=== PATIENT | female | born 1960 | race Caucasian/White ===

== ENCOUNTER 2019-12-24 15:19 | Outpatient (CLI) | payer OTHER, SELFPAY ==
--- NOTE | ~2019-12-24 | MM_ITS ---
EXAMINATION: MM screening [facility] BI w manjeet HISTORY: Screening TECHNIQUE: Craniocaudal and mediolateral oblique 3-D tomosynthesis images were obtained and synthetic 2-D images were generated. CAD analysis was submitted and interpreted. COMPARISON: 10/27/2017 BREAST PARENCHYMAL COMPOSITION: There are scattered areas of fibroglandular density. FINDINGS: There is no evidence of suspicious mass, calcification, or architectural distortion to sugg est malignancy in either breast. There has been no suspicious interval change. IMPRESSION: 1. No mammographic evidence of malignancy. 2. Recommend routine screening mammography in one year. BI-RADS Category 1: Negative Reviewed, dictated and finalized at location A.
== END 2019-12-24 15:20 | disposition home or self-care (01) ==
LOC: ANHIMG 15:24
PROVIDERS: PCP Family Medicine; Visit Provider Family Medicine
DX: Z12.31 Encounter for screening mammogram for malignant neoplasm of breast (principal)
CPT/HCPCS: 77063; 77067

== ENCOUNTER → 2020-01-14 09:43 | Outpatient (CLI) | payer OTHER, SELFPAY ==
--- NOTE | ~2020-01-14 | DEXA_ITS ---
Bone Density Report Name: Coco Hancock Age: 59 Sex: Female Ethnicity: White Date of : 1960 Indication: postmenopausal; screening for osteoporosis; height loss; Referring Provider: Phillip Mccarty Study: Bone densitometry was performed. Exam Date: January 14, 2020 Accession number: [id number] Bone Density: Region BMD T-score Z-score Classification AP Spine (L1-L4) 0.888 -1.4 0.0 Osteopenia Femoral Neck (Left) 0.757 -0.8 0.4 Normal Total Hip (Left) 0.959 0.1 1.1 Normal Femoral Neck (Right) 0.729 -1.1 0.2 Osteopenia Total Hip (Right) 0.889 -0.4 0.5 Normal Total Hip Mean 0.924 -0.2 0.8 Normal World Health Organization criteria for BMD impression classify patients as: Normal (T-score at or above -1.0), Osteopenia (T-score between -1.0 and -2.5), or Osteoporosis (T-score at or below -2.5). 10-year Fracture Risk(1): Major Osteoporotic Fracture 6.1% Hip Fracture 0.3% Reported Risk Factors: [place] (), Neck BMD=0.729, BMI=44.5 (1) FRAX(R) Version 3.08. Fracture probability calculated for an untreated patient. Fracture probability may be lower if the patient has received treatment. Clinical Information Provided by Patient: Patient maximum height was 66 Menopause Age: 32 No regular weight bearing exercise Onset of menses at age 16 Number of children 0 Missed period for more than 6 months in a row Impression: The patient has low bone mass, based on the Total Spine T-score. The patient has an estimated ten-year risk of hip fracture of 0.3% and an estimated ten-year risk of major fracture of 6.1%, based on the WHO FRAX algorithm. Discussion: BONE DENSITY IS LOW AT ONE OR MORE SKELETAL SITES. This patient's lowest T-score is low at one or more skeletal sites. It meets the World Health Organization's (WHO) criteria for ?low bone mass? (T-score between -1.0 and -2.5). The patient's 10-year risk of fracture as calculated by FRAX is less than the threshold where pharmacological therapy is recommended by the National Osteoporosis Foundation (NOF). However, all treatment decisions require clinical judgment and consideration of individual patient factors, including patient preferences, comorbidities, previous drug use, risk factors not captured in the FRAX model (e.g., frailty, falls, vitamin D deficiency, increased bone turnover, interval significant decline in bone density) and possible under or overestimation of fracture risk by FRAX. The patient should follow a healthful lifestyle (good nutrition with adequate calcium and vitamin D, and appropriate weight-bearing exercise). Follow-Up: Consider repeating this study in 2 to 3 years to reassess this patient's status, or sooner if there is some new clinical indication. Reported by: [facility] on 01/14/2020 10:14:00 AM.
== END ==
PROVIDERS: PCP Family Medicine; Visit Provider Family Medicine
DX: Z78.0 Asymptomatic menopausal state (principal); M85.88 Other specified disorders of bone density and structure, other site; M85.851 Other specified disorders of bone density and structure, right thigh
CPT/HCPCS: 77080

== ENCOUNTER 2020-12-29 09:58 | Outpatient (CLI) | payer OTHER, SELFPAY ==
--- NOTE | ~2020-12-29 | MM_ITS ---
EXAMINATION: MM screening [facility] BI w manjeet HISTORY: Screening TECHNIQUE: Craniocaudal and mediolateral oblique 3-D tomosynthesis images were obtained and synthetic 2-D images were generated. CAD analysis was submitted and interpreted. COMPARISON: Comparison to multiple prior studies sequentially, with oldest reviewed study dated 10/27. BREAST PARENCHYMAL COMPOSITION: There are scattered areas of fibroglandular density. FINDINGS: There is a small developing radiolucent mass in the upper outer quadrant of the right breas t. The left breast cysts stable without evidence for malignancy. IMPRESSION: 1. Developing right breast mass. 2. Additional mammographic views and possible breast ultrasound are recommended. BI-RADS Category 0: Incomplete: Needs additional imaging evaluation. Reviewed, dictated and finalized at location A. IMPRESSION: 1. Developing right breast mass. 2. Additional mammographic views and possible breast ultrasound are recommended . BI-RADS Category 0: Incomplete: Needs additional imaging evaluation.
== END 2020-12-29 09:59 | disposition home or self-care (01) ==
LOC: ANHIMG 10:00
PROVIDERS: PCP Family Medicine; Visit Provider Family Medicine
DX: Z12.31 Encounter for screening mammogram for malignant neoplasm of breast (principal); R92.8 Other abnormal and inconclusive findings on diagnostic imaging of breast
CPT/HCPCS: 77063; 77067

== ENCOUNTER 2021-01-18 13:54 | Outpatient (CLI) | payer OTHER, SELFPAY ==
--- NOTE | ~2021-01-18 | MMUS_ITS ---
EXAMINATION: MM diagnostic durga RT w manjeet, US breast RT limited HISTORY: Right breast mass on screening mammogram TECHNIQUE: Additional 3-D tomosynthesis images of the right breast were performed and synthetic 2-D i mages were generated. CAD analysis was submitted and interpreted. High resolution limited right breas t ultrasound was performed. COMPARISON: 12/29/2020, 12/24/2019, 10/27/2017 BREAST PARENCHYMAL COMPOSITION: There are scattered areas of fibroglandular density. FINDINGS: MAMMOGRAPHIC FINDINGS: There is a return to baseline fibroglandular appearance with spot compression of the right breast in the area questioned on screening mammogram. ULTRASOUND: There is no evidence of focal abnormal solid or cystic mass in the vicinity of the mammographic findi ng in question. IMPRESSION: 1. No mammographic or sonographic evidence of malignancy. 2. Recommend routine screening mammography in one year. BI-RADS Category 1: Negative Reviewed, dictated and finalized at location A. IMPRESSION: 1. No mammographic or sonographic evidence of malignancy. 2. Recommend routine screening mammography in one year. BI-RADS Category 1: Negative
== END 2021-01-18 13:55 | disposition home or self-care (01) ==
LOC: ANHIMG 13:56
PROVIDERS: PCP Family Medicine; Visit Provider Family Medicine
DX: R92.8 Other abnormal and inconclusive findings on diagnostic imaging of breast (principal)
CPT/HCPCS: 76642; 77061; 77065; G0279

== ENCOUNTER 2021-03-19 07:53 | Outpatient (CLI) | payer OTHER, SELFPAY ==
--- NOTE | 2021-03-19 08:00 | ECG_ITS ---
Measurements Intervals [place] Rate: 67 P: 17 ME: 135 QRS: -25 QRSD: 112 T: -4 QT: 377 QTc: 400 Interpretive Statements SINUS RHYTHM INCOMPLETE RIGHT BUNDLE BRANCH BLOCK DELAYED PRECORDIAL R/S TRANSITION LOW QRS VOLTAGE IN PRECORDIAL LEADS BORDERLINE T WAVE ABNORMALITY- ANTERIOR LEADS BASELINE ARTIFACT- II, III, V3-V6 BORDERLINE ECG Electronically Signed On 03-19-2021 8:14:09 PRACTICE LEAD by Donovan Bello D.O.
== END 2021-03-19 07:54 | disposition home or self-care (01) ==
LOC: ANHCARD 07:55
PROVIDERS: PCP Family Medicine; Visit Provider Family Medicine
DX: Z01.818 Encounter for other preprocedural examination (principal); I45.10 Unspecified right bundle-branch block; R94.31 Abnormal electrocardiogram [ECG] [EKG]
CPT/HCPCS: 93005

== ENCOUNTER 2021-09-25 08:11 | Emergency (ER) | payer OTHER, SELFPAY ==
--- NOTE | ~2021-09-25 | XR_ITS ---
XR knee LT 3V 09/25/2021 08:42 Indication: Left knee pain after trauma Procedure: 4 views left knee Comparison: No prior studies for comparison. Findings: There is a depressed lateral tibial plateau fracture, age indeterminate. There is osteoarth ritis of the left knee. No significant joint effusion. Impression: 1: Age-indeterminate lateral tibial plateau fracture. 2: Mild tricompartment osteoarthritis. Reviewed, dictated and finalized at location A. Impression: 1: Age-indeterminate lateral tibial plateau fracture. 2: Mild tricompartment osteoarthritis.
[2021-09-25 08:13] VITALS: PULSE 65; RESP 18; TEMP 36.4; O2SAT 100
[2021-09-25] MEDS: ACETAMINOPHEN 500 MG TABLET 1000 MG PO (08:27)
--- NOTE | 2021-09-25 09:50 | ED.LOWEXIN ---
HPI - Extremity Injury (Lower) General Chief Complaint: Extremity Injury, Lower Stated Complaint: fall 1 step from flip flop slipping L knee pain Time Seen by Provider: 09/25/21 08:12 History of Present Illness HPI Narrative: 61-year-old female presents after she slipped and fell, she felt a popping in her left knee and pain. She has put some ice on it, states that it was hurting so much she could not put weight on it, so she came to the hospital. No focal numbness or weakness or tingling. Related Data Home Medications Medication Instructions Recorded Confirmed omega-3 fatty acids 1,000 mg 1,000 mg PO DAILY 12/03/19 01/18/21 capsule (Fish Oil Concentrate) cholecalciferol (vitamin D3) 50 50 mcg PO DAILY 01/13/20 01/18/21 mcg (2,000 unit) capsule vit C 250 mg-vit E 90 mg-zinc 40 1 tablet PO BID 01/13/20 01/18/21 mg-copper 1 [id number] capsule (PreserVision AREDS-2) calcium carbonate 600 mg calcium 600 mg PO DAILY 01/16/20 01/18/21 (1,500 mg) tablet (Calcium) Allergies Allergy/AdvReac Type Severity Reaction Status Date / Time No Known Allergies Allergy Verified 09/25/21 08:20 Review of Systems Review of Systems: M/S: Left knee pain SKIN: No abrasions NEURO: [No headache or focal numbness or weakness] PMFSH Past Medical History Medical History Cataract Environmental allergies CONOR (obstructive sleep apnea) Osteopenia Ovarian failure 1982 Unspecified osteoarthritis, unspecified site Vision abnormalities Weight gain Surgical History Surgical History H/O laparoscopy 1982 Exploratory for premature ovarian failure History of cataract surgery (~2017) Family History Family History Mother Family history of osteoporosis Hypertension Family history of cardiovascular disease Family history of arthritis Family history of chronic obstructive pulmonary disease Cerebrovascular accident Father Hydrocephalus Other Diabetes mellitus Family history of rheumatoid arthritis Social History Social History Smoking status: Never smoker Second hand tobacco smoke exposure: No Alcohol intake: former Substance use: never Gender identity (if verbalized by the patient): Female Exam Narrative: EXAMINATION OF ORGAN SYSTEMS/BODY AREAS: Constitutional: Vital signs per nursing GENERAL:[No acute distress, non-toxic appearing.] HEAD: Normal with no signs of head trauma. EYES: EOMI, conjunctiva normal ENT: Hearing grossly intact LUNGS: Nonlabored breathing. HEART: [Regular rate and rhythm] EXT: Tenderness to lateral left knee, strong DP pulses bilaterally SKIN: [No rashes or lesions.] NEURO: [Alert and oriented x 3. No gross focal sensory or strength deficits.] PSYCH: Normal affect Course Vital Signs Vital signs: Vital Signs Temperature 97.5 F L 09/25/21 08:13 Pulse Rate 65 09/25/21 08:13 Respiratory Rate 18 09/25/21 08:13 Pulse Oximetry 100 09/25/21 08:13 Oxygen Delivery Room Air 09/25/21 08:13 Temperature 97.5 F L 09/25/21 08:13 Pulse Rate 60 09/25/21 10:14 Respiratory Rate 18 09/25/21 10:14 Blood Pressure 127/84 09/25/21 10:14 Pulse Oximetry 100 09/25/21 10:14 Oxygen Delivery Room Air 09/25/21 08:13 MDM - Extremity Injury (Lower) MDM Narrative Medical decision making narrative: 61-year-old female presenting with left knee injury, vital stable, exam shows some tenderness palpation of the left lateral knee but neurovascularly intact, x-ray notable for arthritis and lateral tibial plateau fracture, as patient is neurovascularly intact without any signs of compartment syndrome, I do feel she is stable for outpatient follow-up with orthopedics at this time, she is given follow-up information and return precautions, she promises to come darrian
[2021-09-25 10:14] VITALS: BP 127/84; PULSE 60; RESP 18; O2SAT 100
== END 2021-09-25 09:50 | disposition home or self-care (01) ==
PROVIDERS: Emergency Provider Emergency Medicine; PCP Family Medicine
DX: S82.002A Unspecified fracture of left patella, initial encounter for closed fracture (principal); W01.0XXA Fall on same level from slipping, tripping and stumbling without subsequent striking against object, initial encounter
CPT/HCPCS: 73562; 99283; A9270

== ENCOUNTER 2022-01-19 08:29 | Outpatient (CLI) | payer OTHER, SELFPAY ==
--- NOTE | ~2022-01-19 | MM_ITS ---
EXAMINATION: MM screening [facility] BI w manjeet HISTORY: Screening mammogram TECHNIQUE: Craniocaudal and mediolateral oblique 3-D tomosynthesis images were obtained and synthetic 2-D images were generated. CAD analysis was submitted and interpreted. COMPARISON: 01/18/2021, 12/29/2020, 12/24/2019 BREAST PARENCHYMAL COMPOSITION: There are scattered areas of fibroglandular density. FINDINGS: No suspicious mass, calcification, or architectural distortion are identified in either rebecca ast to suggest malignancy. There has been no suspicious interval change. IMPRESSION: 1. No mammographic evidence of malignancy. 2. Recommend routine screening mammography in one year. BI-RADS Category 1: Negative Reviewed, dictated and finalized at location A.
== END 2022-01-19 08:30 | disposition home or self-care (01) ==
PROVIDERS: PCP Family Medicine; Visit Provider Family Medicine
DX: Z12.31 Encounter for screening mammogram for malignant neoplasm of breast (principal)
CPT/HCPCS: 77063; 77067

== ENCOUNTER 2023-02-08 09:23 | Outpatient (CLI) | payer OTHER, SELFPAY ==
[2023-02-08 13:44] LABS: Basophils Absolute Auto 0.1 K/mm3 (0.0-0.1); Basophils Percent Auto 1.3 % (0.2-1.2); Eosinophils Absolute Auto 0.3 K/mm3 (0-0.3); Hematocrit 46.6 % (37.0-47.0); Hemoglobin 14.5 g/dL (12.0-15.0); Immature Granulocyte Absolute 0.04 K/mm3 (0.00-0.031); Immature Granulocyte Percent A 0.5 % (0-0.5); Lymphocytes Absolute Auto 2.37 K/mm3 (0.9-3.2); Lymphocytes Percent Auto 28.6 % (18.3-44.2); Mean Corpuscular HGB Conc 31.1 g/dl (32-36); Mean Corpuscular Hemoglobin 28.4 pg (26-34); Mean Corpuscular Volume 91.2 fl (80-100); Mean Platelet Volume 10.3 fl (7.4-10.4); Monocytes Absolute Auto 0.7 K/mm3 (0.1-0.6); Monocytes Percent Auto 8.2 % (2.6-8.5); Neutrophils Absolute Auto 4.8 K/mm3 (1.3-6.7); Neutrophils Percent Auto 57.4 % (45.5-73.1); Platelet Count Result 283 k/mm3 (150-375); Red Blood Count 5.11 M/mm3 (4.2-5.4); White Blood Count 8.3 K/mm3 (4.5-10.0)
[2023-02-08 14:00] LABS: Alanine Aminotransferase 35 U/L (6-35); Albumin Level 4.5 g/dL (3.5-5.1); Alkaline Phosphatase 77 U/L (38-126); Anion Gap 6 mmol/L (8-16); Aspartate Amino Transferase 82 U/L (14-36); Bilirubin,Total 1.2 mg/dL (0.2-1.3); Blood Urea Nitrogen 16 mg/dL (7-17); Calcium 9.7 mg/dL (8.4-10.2); Carbon Dioxide 30 mmol/L (22-30); Chloride 104 mmol/L (98-107); Cholesterol 199 mg/dL (0-200); Estimated Glomerular Filt Rate > 60; Glucose 97 mg/dL (65-110); HDL Direct 47 mg/dL; Potassium 3.9 mmol/L (3.4-5.0); Sodium 140 mmol/L (137-145); Triglycerides 118 mg/dL (<150)
[2023-02-08 14:11] LABS: LDL Cholesterol Direct 111 mg/dL
[2023-02-08 14:23] LABS: Vitamin D 25 Hydroxy 55.9 ng/mL
[2023-02-08 14:51] LABS: Hemoglobin A1C 5.6 % (<5.7)
== END 2023-02-08 09:24 | disposition home or self-care (01) ==
LOC: ANHGOSHLAB 09:24
PROVIDERS: PCP Family Medicine; Visit Provider Family Medicine
DX: Z00.00 Encounter for general adult medical examination without abnormal findings (principal); E78.5 Hyperlipidemia, unspecified; E53.8 Deficiency of other specified B group vitamins; E55.9 Vitamin D deficiency, unspecified; R73.03 Prediabetes; R79.89 Other specified abnormal findings of blood chemistry
CPT/HCPCS: 36415; 80053; 80061; 82306; 82607; 83036; 84443; 85025

== ENCOUNTER 2023-03-22 14:44 | Outpatient (CLI) | payer OTHER, SELFPAY ==
[2023-03-22 19:30] LABS: Alanine Aminotransferase 35 U/L (6-35); Albumin Level 4.4 g/dL (3.5-5.1); Alkaline Phosphatase 78 U/L (38-126); Anion Gap 7 mmol/L (8-16); Aspartate Amino Transferase 49 U/L (14-36); Bilirubin,Total 1.2 mg/dL (0.2-1.3); Blood Urea Nitrogen 17 mg/dL (7-17); Calcium 9.8 mg/dL (8.4-10.2); Carbon Dioxide 28 mmol/L (22-30); Chloride 104 mmol/L (98-107); Estimated Glomerular Filt Rate > 60; Glucose 87 mg/dL (65-110); Sodium 139 mmol/L (137-145)
== END 2023-03-22 14:45 | disposition home or self-care (01) ==
LOC: ANHGOSHLAB 14:45
PROVIDERS: PCP Family Medicine; Visit Provider Family Medicine
DX: R74.01 Elevation of levels of liver transaminase levels (principal)
CPT/HCPCS: 36415; 80053

== ENCOUNTER 2023-04-25 14:04 | Outpatient (CLI) | payer OTHER, SELFPAY ==
--- NOTE | ~2023-04-25 | MM_ITS ---
EXAMINATION: MM screening [facility] BI w manjeet HISTORY: Screening mammogram TECHNIQUE: Craniocaudal and mediolateral oblique 3-D tomosynthesis images were obtained and synthetic 2-D images were generated. CAD analysis was submitted and interpreted. COMPARISON: 01/19/2022, 01/18/2021, 12/29/2020, 12/24/2019, 10/27/2017 BREAST PARENCHYMAL COMPOSITION: There are scattered areas of fibroglandular density. FINDINGS: No suspicious mass, calcification, or architectural distortion are identified in either rebecca ast to suggest malignancy. There has been no suspicious interval change. IMPRESSION: 1. No mammographic evidence of malignancy. 2. Recommend routine screening mammography in one year. BI-RADS Category 1: Negative Reviewed, dictated and finalized at location A. [employer]ING [employer] OPERATOR
== END 2023-04-25 14:05 | disposition home or self-care (01) ==
PROVIDERS: PCP Family Medicine; Visit Provider Obstetrics & Gynecology
DX: Z12.31 Encounter for screening mammogram for malignant neoplasm of breast (principal)
CPT/HCPCS: 77063; 77067

== ENCOUNTER 2023-07-06 08:50 | Outpatient (CLI) | payer OTHER, SELFPAY ==
--- NOTE | ~2023-07-06 | DEXA_ITS ---
Bone Density Report Name: TOM MCALLISTER Age: 63 Sex: Female Ethnicity: White Date of : 1960 Indication: postmenopausal; screening for osteoporosis; height loss; Referring Provider: JOSH JONES Study: Bone densitometry was performed. Exam Date: July 06, 2023 Accession number: [id number] Bone Density: Region BMD T-score Z-score Classification AP Spine(L1-L4) 0.887 -1.5 0.2 Osteopenia Femoral Neck (Left) 0.694 -1.4 0.0 Osteopenia Total Hip (Left) 0.916 -0.2 0.9 Normal Femoral Neck (Right) 0.723 -1.1 0.3 Osteopenia Total Hip (Right) 0.925 -0.1 1.0 Normal Total Hip Mean 0.920 -0.2 1.0 Normal World Health Organization criteria for BMD impression classify patients as: Normal (T-score at or above -1.0), Osteopenia (T-score between -1.0 and -2.5), or Osteoporosis (T-score at or below -2.5). 10-year Fracture Risk(1): Major Osteoporotic Fracture 7.1% Hip Fracture 0.6% Reported Risk Factors: [place] (), Neck BMD=0.694, BMI=45.5 (1) FRAX(R) Version 3.08. Fracture probability calculated for an untreated patient. Fracture probability may be lower if the patient has received treatment. Previous Exams: Region Exam Age BMD T-score BMD Change BMD Change Date g/cm2 vs Baseline vs Previous AP Spine (L1-L4) 07/06/2023 63 0.887 -1.5 -0.072 (-7.5%) -0.072 (-7.5%) 07/06/2023 63 0.960 -0.8 *Denotes significance at 95% confidence level, LSC for AP Spine = 0.022 g/cm2 # Denotes dissimilar scan types or analysis methods Clinical Information Provided by Patient: Has used the following medications: Vitamin D, Calcium Patient maximum height was 66 Onset of menses at age 16 Number of children 0 Impression: The patient has low bone mass, based on the Total Spine T-score. The patient has an estimated ten-year risk of hip fracture of 0.6% and an estimated ten-year risk of major fracture of 7.1%, based on the WHO FRAX algorithm. No significant bone loss was observed. Discussion: BONE DENSITY IS LOW AT ONE OR MORE SKELETAL SITES. This patient's lowest T-score is low at one or more skeletal sites. It meets the World Health Organization's (WHO) criteria for ?low bone mass? (T-score between -1.0 and -2.5). The patient's 10-year risk of fracture as calculated by FRAX is less than the threshold where pharmacological therapy is recommended by the National Osteoporosis Foundation (NOF). However, all treatment decisions require clinical judgment and consideration of individual patient factors, including pat
== END 2023-07-06 08:51 | disposition home or self-care (01) ==
PROVIDERS: PCP Family Medicine; Visit Provider Family Medicine
DX: Z78.0 Asymptomatic menopausal state (principal); M85.88 Other specified disorders of bone density and structure, other site; M85.852 Other specified disorders of bone density and structure, left thigh; M85.851 Other specified disorders of bone density and structure, right thigh
CPT/HCPCS: 77080

== ENCOUNTER 2024-03-20 09:09 | Outpatient (CLI) | payer OTHER, SELFPAY ==
[2024-03-20 12:57] LABS: Alanine Aminotransferase 38 U/L (6-35); Albumin Level 4.6 g/dL (3.5-5.1); Alkaline Phosphatase 80 U/L (38-126); Anion Gap 7 mmol/L (4-12); Aspartate Amino Transferase 57 U/L (14-36); Bilirubin,Total 0.8 mg/dL (0.2-1.3); Blood Urea Nitrogen 19 mg/dL (7-17); Calcium 9.9 mg/dL (8.4-10.2); Carbon Dioxide 28 mmol/L (22-30); Chloride 105 mmol/L (98-107); Cholesterol 175 mg/dL (0-200); Estimated Glomerular Filt Rate > 60; Glucose 97 mg/dL (65-110); HDL Direct 46 mg/dL; Potassium 4.5 mmol/L (3.4-5.0); Sodium 140 mmol/L (137-145); Triglycerides 108 mg/dL (<150)
[2024-03-20 12:59] LABS: Basophils Absolute Auto 0.1 K/mm3 (0.0-0.1); Basophils Percent Auto 1.4 % (0.2-1.2); Eosinophils Absolute Auto 0.4 K/mm3 (0-0.3); Eosinophils Percent Auto 4.9 % (0-4.4); Hematocrit 45.3 % (37.0-47.0); Hemoglobin 14.6 g/dL (12.0-15.0); Immature Granulocyte Absolute 0.03 K/mm3 (0.00-0.031); Immature Granulocyte Percent A 0.4 % (0-0.5); Lymphocytes Absolute Auto 2.35 K/mm3 (0.9-3.2); Lymphocytes Percent Auto 28.3 % (18.3-44.2); Mean Corpuscular HGB Conc 32.2 g/dl (32-36); Mean Corpuscular Hemoglobin 29.1 pg (26-34); Mean Corpuscular Volume 90.2 fl (80-100); Mean Platelet Volume 10.5 fl (7.4-10.4); Monocytes Absolute Auto 0.8 K/mm3 (0.1-0.6); Monocytes Percent Auto 9.4 % (2.6-8.5); Neutrophils Absolute Auto 4.6 K/mm3 (1.3-6.7); Neutrophils Percent Auto 55.6 % (45.5-73.1); Platelet Count Result 271 k/mm3 (150-375); Red Blood Count 5.02 M/mm3 (4.2-5.4); Red Cell Distribution Width 13.1 % (11.5-14.5); White Blood Count 8.3 K/mm3 (4.5-10.0)
[2024-03-20 13:08] LABS: LDL Cholesterol Direct 95 mg/dL
[2024-03-20 13:20] LABS: Vitamin D 25 Hydroxy 56.4 ng/mL
[2024-03-20 13:41] LABS: Vitamin B12 > 1000.0 pg/mL (239-931)
[2024-03-20 14:40] LABS: Free T4 Free Thyroxine Reflex 1.24 ng/dL (0.78-2.19)
[2024-03-20 15:47] LABS: Total Triiodothyronine (T3) 1.48 NG/ML (0.97-1.69)
[2024-03-20 23:33] LABS: Hemoglobin A1C 5.8 % (<5.7)
== END 2024-03-20 09:10 | disposition home or self-care (01) ==
LOC: ANHGOSHLAB 09:10
PROVIDERS: PCP Family Medicine; Visit Provider Family Medicine
DX: E78.5 Hyperlipidemia, unspecified (principal); Z79.899 Other long term (current) drug therapy; R42 Dizziness and giddiness; E53.8 Deficiency of other specified B group vitamins; E55.9 Vitamin D deficiency, unspecified; Z00.00 Encounter for general adult medical examination without abnormal findings; R73.03 Prediabetes
CPT/HCPCS: 36415; 80053; 80061; 82306; 82607; 83036; 84439; 84443; 84480; 85025

== ENCOUNTER 2024-09-24 08:15 | Outpatient (CLI) | payer OTHER, SELFPAY ==
[2024-09-24 16:53] LABS: Hemoglobin A1C 5.6 % (<5.7)
[2024-09-24 17:04] LABS: Alanine Aminotransferase 31 U/L (6-35); Albumin Level 4.5 g/dL (3.5-5.1); Alkaline Phosphatase 80 U/L (38-126); Anion Gap 10 mmol/L (4-12); Aspartate Amino Transferase 47 U/L (14-36); Bilirubin,Total 0.9 mg/dL (0.2-1.3); Blood Urea Nitrogen 18 mg/dL (7-17); Carbon Dioxide 26 mmol/L (22-30); Chloride 104 mmol/L (98-107); Estimated Glomerular Filt Rate > 60; Glucose 74 mg/dL (65-110); Potassium 4.1 mmol/L (3.4-5.0); Sodium 140 mmol/L (137-145); Total Protein 7.4 g/dL (6.3-8.2)
== END 2024-09-24 08:16 | disposition home or self-care (01) ==
LOC: ANHGOSHLAB 08:16
PROVIDERS: PCP Family Medicine; Visit Provider Family Medicine
DX: R73.03 Prediabetes (principal); E78.5 Hyperlipidemia, unspecified
CPT/HCPCS: 36415; 80053; 83036

== ENCOUNTER 2025-03-26 09:24 | Outpatient (CLI) | payer MEDICARE, SELFPAY ==
[2025-03-26 13:09] LABS: Hematocrit 43.7 % (37.0-47.0); Hemoglobin 13.9 g/dL (12.0-15.0); Immature Granulocyte Percent A 0.4 % (0-0.5); Lymphocytes Absolute Auto 2.47 K/mm3 (0.9-3.2); Mean Corpuscular HGB Conc 31.8 g/dl (32-36); Mean Corpuscular Hemoglobin 28.4 pg (26-34); Mean Corpuscular Volume 89.4 fl (80-100); Nucleated Red Blood Cells Absolute Auto 0.000 K/mm3 (0.0-0.012); Nucleated Red Blood Cells Perc 0.0 % (0.0-0.2); Platelet Count Result 275 k/mm3 (150-375); Red Blood Count 4.89 M/mm3 (4.2-5.4); White Blood Count 7.6 K/mm3 (4.5-10.0)
[2025-03-26 15:14] LABS: Alanine Aminotransferase 31 U/L (6-35); Albumin Level 4.6 g/dL (3.5-5.1); Alkaline Phosphatase 87 U/L (38-126); Anion Gap 4 mmol/L (4-12); Aspartate Amino Transferase 52 U/L (14-36); Bilirubin,Total 1.5 mg/dL (0.2-1.3); Blood Urea Nitrogen 24 mg/dL (7-17); Calcium 10.2 mg/dL (8.4-10.2); Carbon Dioxide 29 mmol/L (22-30); Chloride 105 mmol/L (98-107); Cholesterol 199 mg/dL (0-200); Estimated Glomerular Filt Rate 55; Glucose 82 mg/dL (65-110); HDL Direct 65 mg/dL; Potassium 4.4 mmol/L (3.4-5.0); Sodium 138 mmol/L (137-145); Total Protein 8.1 g/dL (6.3-8.2); Triglycerides 99 mg/dL (<150)
[2025-03-26 15:45] LABS: Thyroid Stimulating Hormone Reflex 4.700 uIU/mL (0.465-4.68)
[2025-03-26 16:18] LABS: Vitamin B12 638.0 pg/mL (239-931)
[2025-03-26 16:47] LABS: Free T4 Free Thyroxine Reflex 1.19 ng/dL (0.78-2.19)
[2025-03-26 17:32] LABS: Total Triiodothyronine (T3) 1.16 NG/ML (0.82-1.58)
[2025-03-26 18:28] LABS: Hemoglobin A1C 5.6 % (<5.7)
== END 2025-03-26 09:25 | disposition home or self-care (01) ==
LOC: ANHGOSHLAB 09:25
PROVIDERS: PCP Family Medicine; Visit Provider Family Medicine
DX: E78.5 Hyperlipidemia, unspecified (principal); Z79.899 Other long term (current) drug therapy; E53.8 Deficiency of other specified B group vitamins; Z00.00 Encounter for general adult medical examination without abnormal findings; R73.03 Prediabetes; E55.9 Vitamin D deficiency, unspecified
CPT/HCPCS: 36415; 80053; 80061; 82306; 82607; 83036; 84439; 84443; 84480; 85025

== ENCOUNTER 2025-04-15 11:11 | Outpatient (CLI) | payer MEDICARE, SELFPAY ==
[2025-04-15 18:32] LABS: Anion Gap 7 mmol/L (4-12); Blood Urea Nitrogen 20 mg/dL (7-17); Calcium 10.3 mg/dL (8.4-10.2); Carbon Dioxide 30 mmol/L (22-30); Chloride 102 mmol/L (98-107); Estimated Glomerular Filt Rate > 60; Glucose 95 mg/dL (65-110); Potassium 4.2 mmol/L (3.4-5.0); Sodium 139 mmol/L (137-145)
== END 2025-04-15 11:12 | disposition home or self-care (01) ==
PROVIDERS: PCP Family Medicine; Visit Provider Family Medicine
DX: N28.9 Disorder of kidney and ureter, unspecified (principal)
CPT/HCPCS: 36415; 80048